=== PATIENT | male | born 1935 | race Caucasian/White ===

== ENCOUNTER 2023-06-01 10:16 | Day surgery (SDC) | payer MEDICARE ==
[~2023-06-01] VITALS: Ht 175.3 cm; Wt 92.7 kg
[~2023-06-01 10:16] MED LIST: ASPI325T6 PO; ASPIRIN E.C. 8181 MG PO; B-121000 MCG PO; COREG12.5 MG PO; COZAAR 25MG25 MG/TAB PO; GLUCOPHAGE XR500 M1 PO; INSULIN AS100 UNIT/3 SQ; KLOR-CON SPRIN10 MEQ PO; LASIX 40MG TABL40 MG PO; LIPITOR 40MG TA40 MG PO; LIPITOR20 MG PO; LR 1,000 ML IV SCH; LYSINE 500500 MG/TAB PO; NATURAL IRON65 MG; NIACIN 64 MG-501 TA1; NS 1,000 ML IV SCH; PLAVIX 75MG TAB75 MG PO; PREVAGEN PO; PRIL40 PO; TOUJEO300 U/ML SQ; TRESIBA100 UNIT/1 SQ; VITAMIN C500 MG PO; VITAMIN D31000 I1 PO
[2023-06-01] MEDS ORDERED: NS Flush 10 ML SYRINGE PRN ICA (10:45)
[2023-06-01] MEDS ORDERED: 1/2 NS 1,000 ML IV SCH (10:45)
[2023-06-01 11:38] VITALS: BP 192/87; PULSE 69; TEMP 97.8
[2023-06-01 11:43] LABS: HEMOGLOBIN 12.1 g/dl (13.5-18.0); MEAN CELL VOLUME 84 fl (80.0-100.0); MEAN CORPUSCULAR HEMOGLOBIN 28 pg (27-31); MEAN CORPUSCULAR HGB CONC 33 g/dl (33.0-37.0); MEAN PLATELET VOLUME 9.7 fl (7.4-10.4); PLATELET COUNT 188 K/mm3 (130-400); RED BLOOD COUNT 4.36 M/mm3 (4.20-5.60); REDCELL DISTRIBUTION WIDTH-CV 14.4 % (11.5-14.5)
[2023-06-01 11:50] LABS: HEMATOCRIT 36.4 % (42.0-52.0)
[2023-06-01] MEDS ORDERED: PAXIL 10MG10 MG PO (11:53)
[2023-06-01] MEDS ORDERED: NOVOLOG 100U100 U/M1 SQ (12:01)
[2023-06-01] MEDS ORDERED: PLAVIX 75MG TAB75 MG PO (12:02)
[2023-06-01] MEDS ORDERED: ASPIRIN 81M81 MG/TA2 PO (12:02)
[2023-06-01] MEDS ORDERED: LIPITOR 40MG TA40 MG PO (12:03)
[2023-06-01 12:07] LABS: CALCIUM 8.5 mg/dL (8.4-10.2); CREATININE, serum 0.87 mg/dL (0.72-1.25)
[2023-06-01 12:12] LABS: INR 1.1 (0.8-3.0); PROTHROMBIN TIME 12.3 SECONDS (9.7-12.8)
[2023-06-01] MEDS ORDERED: Lidocaine PF 2% (20 MG/ML) 5 ML VIAL ONE (12:25)
[2023-06-01] MEDS ORDERED: Succinylcholine PF 200 MG/10 ML SYRINGE IV ONE (12:26)
[2023-06-01 12:57] VITALS: BP 155/67; PULSE 64
--- NOTE | 2023-06-01 13:00 | NUR ---
Procedure complete - bedside handoff performed with ElsaRN - Pt AOx4, vitals stable, son at bedside, call light in reach
[2023-06-01 13:15] VITALS: BP 161/79; PULSE 64
[2023-06-01 13:45] VITALS: BP 180/74; PULSE 63
--- NOTE | 2023-06-01 14:37 | NUR ---
Dr sparrow in to visit with pt.Discharge instructions given to pt.pt verbalizes understanding.Pt escorted out via wheelchai by this nurse.
[2023-06-01] MEDS ORDERED: NS Flush 10 ML SYRINGE BID ICA SCH (21:00)
== END 2023-06-01 15:38 ==
LOC: COL.CAR 10:16
PROVIDERS: Internal Medicine Cardiovascular Disease
DX: I08.3 Combined rheumatic disorders of mitral, aortic and tricuspid valves (principal); I70.0 Atherosclerosis of aorta; I25.10 Atherosclerotic heart disease of native coronary artery without angina pectoris; I65.23 Occlusion and stenosis of bilateral carotid arteries; I50.20 Unspecified systolic (congestive) heart failure; I11.0 Hypertensive heart disease with heart failure; I21.4 Non-ST elevation (NSTEMI) myocardial infarction; I42.0 Dilated cardiomyopathy; I48.21 Permanent atrial fibrillation; Z87.891 Personal history of nicotine dependence; Z86.16 Personal history of COVID-19; Z95.810 Presence of automatic (implantable) cardiac defibrillator; Z79.4 Long term (current) use of insulin; Z79.02 Long term (current) use of antithrombotics/antiplatelets; Z79.899 Other long term (current) drug therapy
CPT/HCPCS: J2704; J7120